=== PATIENT | female | born 1975 | race Caucasian/White ===

== ENCOUNTER 2020-03-23 15:02 | Emergency (ER) | payer SELFPAY ==
[~2020-03-23] VITALS: Ht 152.4 cm; Wt 64.0 kg
[~2020-03-23 15:02] MED LIST: AMOX500C PO; HYDR-2155 PO
[2020-03-23 15:10] VITALS: BP 119/74
--- NOTE | 2020-03-23 15:34 | PHYS DOC ---
Past History Past Medical History: Bronchitis, CAD, COPD Past Surgical History: Tubal ligation, Other Smoking: Cigarettes Alcohol Use: Occasionally Drug Use: None General Adult EDM: Chief Complaint: Cough, headache, SOA, Fever, Sore throat HPI: HPI: 44-year-old female presents with multiple complaints including shortness of air, headache, subjective fever/chills, and cough which started yesterday. Patient denies known sick contacts. Denies known exposure to COVID-19. 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 Patient also reports she lives across from the [facility] where multiple prisoners and guards have tested positive. Review of Systems: Review of Systems: Constitutional: Reports subjective fever and chills Eyes: Denies redness or eye pain HENT: Denies nasal congestion or sore throat Respiratory: Reports cough and shortness of breath Cardiovascular: Denies chest pain or palpitations GI: Denies abdominal pain, nausea, or vomiting : Denies dysuria or hematuria Musculoskeletal: Denies back pain or joint pain Integument: Denies rash or skin lesions Neurologic: Reports headache; denies focal weakness or sensory changes Complete systems were reviewed and found to be within normal limits, except as documented in this note. Allergies: Allergies: Allergies Coded Allergies Type Severity Reaction Last Updated Verified Penicillins Allergy Unknown HIGH FEVER 02/25/14 Yes Physical Exam: PE: Constitutional: Well developed, well nourished, no acute distress, non-toxic appearance HENT: Normocephalic, atraumatic, TMs clear bilaterally, clear nasal congestion noted Eyes: PERRL, EOMI, conjunctiva normal, no discharge Neck: Normal range of motion, no tenderness, supple, no meningeal signs Lungs & Thorax: No respiratory distress, equal chest rise and fall Abdomen: Soft, no tenderness Skin: Warm, dry, no erythema, no rash Extremities: No tenderness, ROM intact, no edema Neurologic: Alert and oriented X 3, normal motor function, normal sensory function, no focal deficits noted Psychologic: Affect normal, judgment normal EKG: EKG: [] Radiology/Procedures: Radiology/Procedures: PROCEDURE: PORTABLE CHEST 1V Study: CR PORTABLE CHEST 1V Indication: Cough. Shortness of air. Comparison: None. Findings: The cardiomediastinal silhouette is within normal limits for size. Unremarkable anne-marie. No lobar consolidation, pleural effusion or pneumothorax. Unremarkable osseous structures. Impression: No confluent infiltrate to suggest an organizing pneumonia. Electronically signed by: IRMA DENNIS MD (03/23/2020 3:54 PM) [id number] Course & Med Decision Making: Course & Med Decision Making Pertinent Imaging studies reviewed. (See chart for details) \\Patient presents with multiple complaints including subjective fevers/chills, cough, shortness of air, and headache. Patient concern for possible COVID-19 infection. Patient is currently afebrile and O2 sats stable on room air. No respiratory distress appreciated. Patient does have history of COPD and continues to smoke cigarettes. Chest x-ray without acute process. Patient stable for discharge with outpatient follow-up with PCP. An incentive spirometer was provided with education as well as a spacer for patient to use with her MDI. Discussed findings and plan with patient, who acknowledges understanding and agreement. COVID-19 CRITERIA: The patient was evaluated during the global COVID-19 pandemic, and that diagnosis was suspected/considered upon their initial prese ntation. Their evaluation, treatment and testing was consistent with current guidelines for patients who present with complaints or symptoms that may be related to COVID-19. Dragon Disclaimer: Dragon Disclaimer: This electronic medical record was generated, in whole or in part, using a voice recognition dictation system. Departure Departure: Impression: Primary Impression: Viral syndrome Additional Impressions: Suspected 2019 novel coronavirus infection COPD (chronic obstructive pulmonary disease) Qualified Codes: J44.9 - Chronic obstructive pulmonary disease, unspecified Tobacco abuse Disposition: HOME/RESIDENCE PRIOR TO ADM Condition: STABLE Referrals: MARIAN SULLIVAN DO (PCP) Patient Instructions: Chronic Obstructive Pulmonary Disease, [id number], Incentive Spirometer, Smoking, You Can Quit, [id number], Viral Syndrome Additional Instructions: It is suspected you might have COVID-19. Unfortunately the hospital is only testing patients if they are being admitted to the hospital. There are several outpatient locations that are testing the general public including the local health department. Testing does not change treatment. Please continued Tylenol as needed for pain or fever. Increase fluid hydration. Please self isolate for at least 14 days and follow with your doctor. Scripts Azithromycin (AZITHROMYCIN TABLET) 250 Mg Tablet 1 PKG PO UD for bronchitis, #6 TAB Take 2 tablets today and then one tablet every day thereafter for the next 4 days Prov: JOSE FERREIRA DO 03/23/20 COVID-19 Assessment COVID-19 Patient Risks: Age 65 or older: No Sign of co-morbidity: Yes Exp to person + for COVID: No Exp to PUI: Yes Travel from affected area: No Lower respiratory symptoms: Yes Fever: Yes PPE Use: Full PPE with N95 mask or PAPR: Yes JOSE FERREIRA DO March 23, 2020 15:34
--- NOTE | 2020-03-23 15:57 | RAD ---
Study: CR PORTABLE CHEST 1V Indication: Cough. Shortness of air. Comparison: None. Findings: The cardiomediastinal silhouette is within normal limits for size. Unremarkable anne-marie. No lobar consolidation, pleural effusion or pneumothorax. Unremarkable osseous structures. Impression: No confluent infiltrate to suggest an organizing pneumonia. Electronically signed by: IRMA DENNIS MD (03/23/2020 3:54 PM) [id number]
[2020-03-23] MEDS ORDERED: AZIT250T6 PO (16:04)
== END 2020-03-23 16:13 | disposition home or self-care (01) ==
LOC: ER 15:02
DX: B34.9 Viral infection, unspecified (principal); Z03.818 Encounter for observation for suspected exposure to other biological agents ruled out; J44.9 Chronic obstructive pulmonary disease, unspecified; I25.10 Atherosclerotic heart disease of native coronary artery without angina pectoris; F17.210 Nicotine dependence, cigarettes, uncomplicated; Z88.0 Allergy status to penicillin
CPT/HCPCS: 71045; 99283

== ENCOUNTER 2021-01-06 15:21 | Emergency (ER) | payer SELFPAY ==
[~2021-01-06] VITALS: Ht 152.4 cm; Wt 66.3 kg
[~2021-01-06 15:21] MED LIST changes: +AZIT250T6 PO
[2021-01-06 16:37] LABS: U PREG PATIENT NEGATIVE (NEG)
--- NOTE | 2021-01-06 17:01 | RAD ---
Exam: CT orbits without contrast INDICATION: Right thigh blurry vision today TECHNIQUE: Sequential axial images through the orbits obtained without IV contrast. Sagittal and wicho nal reformatted images were reconstructed from the axial data and reviewed. Comparisons: None FINDINGS: Visualized intracranial structures are unremarkable. There is mucosal thickening of the right maxillary sinus. There is periapical lucency surrounding the right maxillary molars with cortical breakthrough into the right maxillary sinus. No acute fractures are identified. Globes and intraorbital contents are normal. Extraocular muscles are symmetric. Optic nerve sheath co mplex is unremarkable. IMPRESSION: 1. No acute abnormality identified at the globes or orbits. 2. Right-sided maxillary sinus disease with periapical lucency involving right maxillary molars with associated cortical breakthrough into the right maxillary sinus. Exposure: One or more of the following in the visualized dose reduction techniques were utilized for this examination: 1. Automated exposure control 2. Adjustment of the MA and/or KV according to patient size 3. Use of iterative of reconstructive technique Electronically signed by: Jelly Aguilar MD (01/06/2021 4:58 PM) [facility]
--- NOTE | 2021-01-06 17:14 | PHYS DOC ---
Past History Past Medical History: No Pertinent History, Bronchitis, CAD, COPD Past Surgical History: Tubal ligation Smoking: Cigarettes Alcohol Use: Occasionally Drug Use: None General Adult EDM: Chief Complaint: OTHER COMPLAINTS HPI: HPI: 45-year-old female who denies any significant past medical history presents the ED with complaints of right-sided vision loss of her periphery that lasted for approximately 20 minutes and has since resolved, occurred while watching TV. States she was lifting up her right arm and could not see her arm out of her right eye. Covered right eye and could see her right arm but when she covered her left eye could only see nasal portion of her view, no temporal vision. Denies any known history of Covid, dvt or pes. Takes no medications. Is postmenopausal. Sees a world history teacher every year and has a " [place] heart test," performed due to mothers' h/o cardiomyopathy and cad. This test consists of labs, no imaging studies, no h/o stress test. Reports "All I drink his coffee, from when I wake up to when I go to sleep." No h/o cocaine, methamphetamine abuse, stimulants or weight loss medications. Does report weight fluctuation with Covid. Had initially lost 25 pounds but has since regained it. Denies any history of head or neck trauma, MVC's results. Unknown baseline vision. Does not wear contact lenses or glasses. Unknown baseline vision. No known history of hypertension, hyperlipidemia. No history of TIA or CVA. Review of Systems: Review of Systems: Constitutional: Denies fever or chills Eyes: Denies eye drainage or redness HENT: Denies nasal congestion or sore throat Respiratory: Denies cough or shortness of breath Cardiovascular: Denies chest pain or edema GI: Denies abdominal pain, nausea, vomiting, bloody stools or diarrhea : Denies dysuria Musculoskeletal: Denies back pain or joint pain Integument: Denies rash Neurologic: Denies headache, focal weakness or sensory changes Endocrine: Denies polyuria or polydipsia Lymphatic: Denies swollen glands Psychiatric: Denies depression or anxiety Allergies: Allergies: Allergies Coded Allergies Type Severity Reaction Last Updated Verified Penicillins Allergy Unknown HIGH FEVER 02/25/14 Yes Physical Exam: PE: Constitutional: Well developed, well nourished, no acute distress, non-toxic appearance. HENT: Normocephalic, atraumatic, Eyes: PERRLA, EOMI, conjunctiva normal, no conjunctival injection or ciliary fl ush, no photophobia, no discharge, [facility] Neck: Normal range of motion, supple, Cardiovascular: S1/2 present, regular rhythm Lungs & Thorax: Speaking in full sentences, bilateral equal chest rise, no tachypnea or increased work of breathing Abdomen: soft, no tenderness, Skin: Warm, dry, no erythema, no rash. [] Back: No tenderness, no CVA tenderness. [] Extremities: No tenderness, no cyanosis, no lower extremity edema Neurologic: NIHSS 0, CN2-12 intact, no ataxia, Alert and oriented X 3, normal motor function, normal sensory function, no focal deficits noted. [] Psychologic: Affect normal, judgement normal, mood normal. [] Current Patient Data: Labs: Laboratory Tests Test 01/06/21 16:00 01/06/21 16:13 Urine Test Negative (NEG) POC Urine HCG, Qualitative Borderline hcg level Vital Signs: Vital Signs Date Time Temp Pulse Resp B/P (MAP) Pulse Ox O2 Delivery O2 Flow Rate FiO2 01/06/21 15:35 97.0 89 16 120/66 (84) 99 Room Air EKG: EKG: [] Radiology/Procedures: Radiology/Procedures: IMAGING REPORT Signed PATIENT: KELSEY DOWNS ACCOUNT: [id number] : 1975 LOCATION: ER AGE: 45 SEX: F EXAM STATUS: REG ER ORD. PHYSICIAN: FRANCISCO J HENDERSON DO REASON: Right eye blurry vision today PROCEDURE: CT ORBITS WO CONTRAST Exam: CT orbits without contrast INDICATION: Right thigh blurry vision today TECHNIQUE: Sequential axial images through the orbits obtained without IV contrast. Sagittal and coronal reformatted images were reconstructed from the axial data and reviewed. Comparisons: None FINDINGS: Visualized intracranial structures are unremarkable. There is mucosal thickening of the right maxillary sinus. There is periapical lucency surrounding the right maxillary molars with cortical breakthrough into the right maxillary sinus. No acute fractures are identified. Globes and intraorbital contents are normal. Extraocular muscles are symmetric. Optic nerve sheath complex is unremarkable. IMPRESSION: 1. No acute abnormality identified at the globes or orbits. 2. Right-sided maxillary sinus disease with periapical lucency involving right maxillary molars with associated cortical breakthrough into the right maxillary sinus. Exposure: One or more of the following in the visualized dose reduction techniques were utilized for this examination: 1. Automated exposure control 2. Adjustment of the MA and/or KV according to patient size 3. Use of iterative of reconstructive technique Electronically signed by: Jelly Garcia MD (01/06/2021 4:58 PM) [facility] DICTATED AND SIGNED BY: JELLY GARCIA MD DATE: 01/06/21 9999 CC: PCP,NO; [facility] ~MTH0 0 attemtped POCUS-ocular exam -was unsuccessful given no linear probe available and poor visualization with phased-array cardiac probe Heart Score: C/O Chest Pain: No Risk Factors: Risk Factors: DM, Current or recent (<one month) smoker, HTN, HLP, family history of CAD, obesity. Risk Scores: Score 0 - 3: 2.5% MACE over next 6 weeks - Discharge Home Score 4 - 6: 20.3% MACE over next 6 weeks - Admit for Clinical Observation Score 7 - 10: 72.7% MACE over next 6 weeks - Early Invasive Strategies Course & Med Decision Making: Course & Med Decision Making Pertinent Labs and Imaging studies reviewed. (See chart for details) Concern for TIA of right eye. CT orbits w/sinus disease -pt denies any sinus pressure (has no nasal congestion/nasal voice). Negative ED urine test on the last test did report borderline-was given to pt to have re-te sted w/pcp. Patient reports history of tubal ligation. BP in normal range. Asymptomatic throughout ED presentation. Patient educated on concern for TIA, that this can be a precursor for a stroke and patient requires urgent PCP follow-up for stroke prevention and urgent (24-48 hours) ophthalmology evaluation. Will discharge home with strict ED return precautions were given for speech changes, arm or leg weakness or sensory deficits, difficulties walking, dizziness, vision loss/changes or eye discharge. Encouraged urgent outpatient follow-up with PMD and ophthalmology in 24 to 48 hours to evaluate for TIA of eye. Life-threatening processes were considered but are low suspicion at this time, given history, physical exam and ED workup. Pt was educated on all prescription medications and adverse effects. All patient's questions were answered and pt was stable at time of discharge. Life/limb-threatening differential includes but is not limited to, acute angle- closure glaucoma, uveitis, corneal abrasion, CRVO/CRAO, PRES, retinal detachment, vitreous hemorrhage, temporal arteritis, optic neuritis, high- altitude retinopathy foreign body, globe rupture, episcleritis, corneal ulcer, traumatic iritis, hyphema or empyema, orbital cellulitis, orbital hematoma, lens dislocation or orbital wall fracture. I spoken with the patient and her caregivers. I explained the patient's condition, diagnoses and treatment plan based on the information available to me at this time. I have answered the patient and her caregiver's questions and addressed any concerns. The patient and her caregivers have a good understanding of patient's diagnosis, condition and treatment plan as can be expected at this point. Vital signs have been stable. Patient's condition is stable and appropriate for discharge from the emergency department. Patient will pursue further outpatient evaluation with primary care physician or other designated or consulting physician as outlined in the discharge instructions. The patient and/or caregivers are agreeable to this plan of care and follow-up instructions have been explained in detail. The patient and/or caregivers have received these instructions in written form and have expressed an understanding of the discharge instructions. The patient and/or caregivers are aware that any significant change of condition or worsening of symptoms should prompt immediate return to this or the closest emergency department or call to 1. Frank Disclaimer: Frank Disclaimer: This electronic medical record was generated, in whole or in part, using a voice recognition dictation system. Departure Departure: Impression: Primary Impression: Blurry vision, right eye Disposition: 01 DC HOME SELF CARE/HOMELESS Condition: STABLE Referrals: PCP,NO (PCP) FOLLOW UP WITH FAMILY MEDICINE: [facility], [facility] [address] [facility] [address] [place] [address], [facility] Instructions: Eye - Blurred Vision, Transient Ischemic Attack Additional Instructions: FOLLOW UP WITH OPTHALMOLOGY: in 24-48 hours [facility], [facility] Address: [address] [place] [address] EMERGENCY DEPARTMENT GENERAL DISCHARGE INSTRUCTIONS Thank you for coming to [facility] (ED) today and trusting us with you care. We trust that you had a positivie experience in our Emergency Department. If you wish to speak to the department management, you may call the director at [phone]. YOUR FOLLOW UP INSTRUCTIONS ARE FOLLOWS: 1. Do you have a private Doctor? If you do not have a private doctor, please ask for a resource list of physicians or clinics that may be able to assist you with follow up care. 2. The Emergency Physician has interpreted your x-rays. The X-Ray specialist w mitch also review them. If there is a change in the findings, you will be notified in 48 hours when at all possible. 3. A lab test or culture has been done, your results will be reviewed and you will be notified if you need a change in treatment. ADDITIONAL INSTRUCTIONS AND INFORMATION: 1. Your care today has been supervised by a physician who is specially trained in emergency care. Many problems require more than one evaluation for a complete diagnosis and treatment. We recommend that you schedule your follow up appointment as recommended to ensure complete treatment of you illness or injury. If you are unable to obtain follow up care and continue to have a problem, or if your condition worsens, we recommend that you return to the ED. 2. We are not able to safely determine your condition over the phone nor are we able to give sound medical advice over the phone. For these safety reasons, if you call for medical advice we will ask you to come to the ED for further evaluation. 3. If you have any questions regarding these discharge instructions please call the ED at [phone]. SAFETY INFORMATION: In the interest of safety, wellness, and injury prevention; we encourage you to wear your sealbelt, if you smoke; quite smoking, and we encourage family to use a protective helmet for bicycling and other sporting events that present an increased risk for head injury. IF YOUR SYMPTOMS WORSEN OR NEW SYMPTOMS DEVELOP, OR YOU HAVE CONCERNS ABOUT YOUR CONDITION; OR IF YOUR CONDITION WORSENS WHILE YOU ARE WAITING FOR YOUR FOLLOW UP APPOINTMENT; EITHER CONTACT YOUR PRIMARY CARE DOCTOR, THE PHYSICIAN WHOSE NAME AND NUMBER YOU WERE GIVEN, OR RETURN TO THE ED IMMEDIATELY. FRANCISCO J HENDERSON DO Jan 06, 2021 17:14
[2021-01-06 17:33] VITALS: BP 132/70
== END 2021-01-06 17:32 | disposition home or self-care (01) ==
LOC: ER 15:21
DX: H53.8 Other visual disturbances (principal); J44.9 Chronic obstructive pulmonary disease, unspecified; I25.10 Atherosclerotic heart disease of native coronary artery without angina pectoris; F17.210 Nicotine dependence, cigarettes, uncomplicated; Z88.0 Allergy status to penicillin
CPT/HCPCS: 70480; 81025; 99284-25

== ENCOUNTER → 2021-01-08 | Outpatient (CLI) | payer SELFPAY ==
[2021-01-06 17:33] VITALS: BP 132/70
[~2021-01-08] MED LIST changes: +IOHEXOL 240 MG/ML 50ML VIAL. ONE; +IOHEXOL 300 MG/ML 75 ML VIAL. IV ONE
--- NOTE | 2021-01-08 16:07 | RAD ---
EXAM: Abdomen and pelvis CT with intravenous contrast. HISTORY: Pain. TECHNIQUE: Computed tomographic images of the abdomen and pelvis were obtained following the administ ration of intravenous contrast. Multiplanar reformatting was performed. *One or more of the following individualized dose reduction techniques were utilized for this examina tion: 1. Automated exposure control. 2. Adjustment of the mA and/or kV according to patient size. 3. Use of iterative reconstruction technique. COMPARISON: None. FINDINGS: Evaluation of the lower thorax is unremarkable. There is a tiny cyst within the superior li christopher. The gallbladder, pancreas, spleen, stomach, adrenal glands and right kidney are unremarkable. Th ere is a suspected punctate nonobstructing stone within lower pole the left kidney. There is no appen dicitis. There is no bowel obstruction. The bladder is unremarkable. The uterus is unremarkable. Ther e are multiple small ovarian follicles. There is trace pelvic free fluid, within physiologic limits. The fallopian tubes are prominent, not clearly within limits to suggest hydrosalpinx. There is no yvonne picious osseous lesion. There is no lymphadenopathy. There is an incidental retroverted left renal ve in. IMPRESSION: No acute abdominal or pelvic finding. Electronically signed by: Dede Severino MD (01/08/2021 4:05 PM) [id number]
== END ==
LOC: CT 13:29
PROVIDERS: ATTEND Family Medicine
DX: K76.89 Other specified diseases of liver (principal); K62.89 Other specified diseases of anus and rectum; E34.9 Endocrine disorder, unspecified; K92.1 Melena; H53.9 Unspecified visual disturbance
CPT/HCPCS: 74177; Q9967

== ENCOUNTER → 2021-02-13 | Outpatient (CLI) | payer SELFPAY ==
[~2021-02-13] MED LIST changes: -IOHEXOL 240 MG/ML 50ML VIAL. ONE; -IOHEXOL 300 MG/ML 75 ML VIAL. IV ONE
[2021-02-13 15:45] LABS: BASO % 1 % (0-3); EOS # 0.1 x10^3/uL (0.0-0.7); EOS % 2 % (0-3); HEMOGLOBIN 12.7 g/dL (12.0-15.5); LYMPH # 1.8 x10^3/uL (1.0-4.8); LYMPH % 32 % (24-48); MEAN CORPUSCULAR HEMOGLOBIN 30 pg (25-35); MEAN CORPUSCULAR HGB CONC 33 g/dL (31-37); MEAN CORPUSCULAR VOLUME 90 fL (79-100); MONO # 0.4 x10^3/uL (0.0-1.1); MONO % 8 % (0-9); NEUT # 3.2 x10^3uL (1.8-7.7); NEUT % 57 % (31-73); PLATELET COUNT 196 x10^3/uL (140-400); RED BLOOD COUNT 4.22 x10^6/uL (3.50-5.40); RED CELL DISTRIBUTION WIDTH 14.1 % (11.5-14.5); WHITE BLOOD COUNT 5.6 x10^3/uL (4.0-11.0)
== END ==
LOC: LAB 14:57
PROVIDERS: ATTEND Nurse Practitioner Women's Health
DX: N92.0 Excessive and frequent menstruation with regular cycle (principal)
CPT/HCPCS: 36415; 85025

== ENCOUNTER 2021-12-24 09:26 | Emergency (ER) | payer SELFPAY ==
[~2021-12-24] VITALS: Ht 152.4 cm; Wt 63.0 kg
--- NOTE | 2021-12-24 10:18 | PHYS DOC ---
Past History Past Medical History: No Pertinent History, Bronchitis, CAD, COPD Past Surgical History: Tubal ligation Additional Past Surgical Histo: OVARAIN CYST REMOVAL Smoking: Cigarettes Alcohol Use: Occasionally Drug Use: None General Adult EDM: Chief Complaint: DIARRHEA HPI: HPI: Patient is a 46-year-old female coming in for lower abdominal pain and bloating. She is also complained of about 9 episodes of diarrhea daily for the past 3 days. Patient was seen in urgent care 4 to 5 days ago for vaginal bleeding and discharge. Had swabs done to evaluate for STI, but states they were negative. Patient has a follow-up appointment with [facility] in 2 days. Patient states she has had some chills and subjective fever, has some nausea but no vomiting. Denies any recent travel, antibiotics, raw or undercooked foods. Has had family members at home with similar symptoms. Review of Systems: Review of Systems: All other systems within normal limits except for as noted in the HPI Allergies: Allergies: Allergies Coded Allergies Type Severity Reaction Last Updated Verified Penicillins Allergy Unknown HIGH FEVER 12/24/21 Yes Physical Exam: PE: Constitutional: Well developed, well nourished, no acute distress, non-toxic appearance. [] HENT: Normocephalic, atraumatic, bilateral external ears normal, nose normal. [] Eyes: PERRLA, conjunctiva normal, no discharge. [] Neck: No rigidity, supple, no stridor. [] Cardiovascular: Regular rate and rhythm, brisk cap refill [] Lungs & Thorax: Non labored symmetric respirations, no tachypnea or respiratory distress [] Abdomen: Soft, mildly distended, lower bilateral lower abdominal pain with palpation Skin: Warm, dry, no erythema, no rash. [] Back: Unremarkable Extremities: No deformities, range of motion grossly intact, no lower extremity edema [] Neurologic: Alert and oriented X 3, no focal deficits noted. [] Psychologic: Affect normal, judgement normal, mood normal. [] Current Patient Data: Vital Signs: Vital Signs Date Time Temp Pulse Resp B/P (MAP) Pulse Ox O2 Delivery O2 Flow Rate FiO2 12/24/21 09:40 97.8 95 18 122/66 (84) 100 Room Air EKG: EKG: [] Radiology/Procedures: Radiology/Procedures: [address] [address] IMAGING REPORT Signed PATIENT: KELSEY DOWNS AACCOUNT: [id number] : 1975 LOCATION: ER AGE: 46 SEX: F EXAM STATUS: REG ER ORD. PHYSICIAN: FILIBERTO PEÑALOZA MD REASON: abd pain and distention ORDERED CONTRAST PROCEDURE: CT ABD PELV W/ IV CONTRST ONLY EXAMINATION: CT ABDOMEN+PELVIS W CLINICAL HISTORY: Abdominal pain and distention TECHNIQUE: CT of the abdomen and pelvis was performed using standard technique, scanning from just above the dome of the diaphragm to the symphysis pubis following administration of intravenous contrast. CT Dose Reduction Employed: One or more of the following individualized dose reduction techniques were utilized for this examination: 1. Automated exposure control 2. Adjustment of the mA and/or kV according to patient size 3. Use of iterative reconstruction technique. COMPARISON: 01/08/2021 FINDINGS: Visualized heart and lungs unremarkable. Liver, gallbladder, pancreas, spleen, adrenal glands, and kidneys unremarkable. Minimally filled urinary bladder. Multifollicular right ovary. Left ovary and uterus unremarkable. Mild fluid in the rectouterine fossa, possibly physiologic. Predominantly fluid-filled small bowel with mild wall thickening, nonspecific but suggestive of mild enteritis. No dilated bowel. Appendix unremarkable. Non distended stomach suboptimally evaluated. Minimal aortic atherosclerotic calcification without aneurysm. No evidence of acute osseous abnormality. Slight dextroconvex curvature in the thoracolumbar spine, possibly positional. IMPRESSION: Findings suggestive of mild enteritis as described, correlate clinically. Electronically signed by: Tej Butler DO (12/24/2021 11:06 AM) [facility] DICTATED AND SIGNED BY: TEJ BUTLER DO DATE: 12/24/21 1058 CC: FILIBERTO PEÑALOZA MD; PCP,NO ~MTH0 0 [] Heart Score: C/O Chest Pain: No Risk Factors: Risk Factors: DM, Current or recent (<one month) smoker, HTN, HLP, family history of CAD, obesity. Risk Scores: Score 0 - 3: 2.5% MACE over next 6 weeks - Discharge Home Score 4 - 6: 20.3% MACE over next 6 weeks - Admit for Clinical Observation Score 7 - 10: 72.7% MACE over next 6 weeks - Early Invasive Strategies Course & Med Decision Making: Course & Med Decision Making Pertinent Labs and Imaging studies reviewed. (See chart for details) [] Frank Disclaimer: Frank Disclaimer: This electronic medical record was generated, in whole or in part, using a voice recognition dictation system. Departure Departure: Impression: Primary Impression: Enteritis Disposition: HOME / SELF CARE / HOMELESS Condition: STABLE Referrals: PCP,NO (PCP) Patient Instructions: Diet for Diarrhea, Adult Scripts Dicyclomine Hcl (DICYCLOMINE HCL) 20 Mg Tablet 1 TAB PO TID PRN for ABDOMINAL CRAMPS, #30 TAB 1 Refill Prov: FILIBERTO PEÑALOZA MD 12/24/21 Ondansetron (ONDANSETRON ODT) 4 Mg Tab.rapdis 1 TAB PO PRN Q6-8HRS PRN for NAUSEA, #16 TAB Prov: FILIBERTO PEÑALOZA MD 12/24/21 FILIBERTO PEÑALOZA MD Dec 24, 2021 10:18
[2021-12-24] MEDS ORDERED: IOHEXOL 300 MG/ML 75 ML VIAL. IV ONE (10:30)
[2021-12-24 10:39] LABS: BASO % 1 % (0-3); EOS % 1 % (0-3); HEMATOCRIT 40.2 % (36.0-47.0); HEMOGLOBIN 13.5 g/dL (12.0-15.5); LYMPH # 0.9 x10^3/uL (1.0-4.8); LYMPH % 25 % (24-48); MEAN CORPUSCULAR HEMOGLOBIN 30 pg (25-35); MEAN CORPUSCULAR HGB CONC 34 g/dL (31-37); MEAN CORPUSCULAR VOLUME 90 fL (79-100); MONO # 0.5 x10^3/uL (0.0-1.1); MONO % 13 % (0-9); NEUT # 2.3 x10^3uL (1.8-7.7); NEUT % 61 % (31-73); PLATELET COUNT 175 x10^3/uL (140-400); RED BLOOD COUNT 4.48 x10^6/uL (3.50-5.40); RED CELL DISTRIBUTION WIDTH 14.3 % (11.5-14.5); WHITE BLOOD COUNT 3.7 x10^3/uL (4.0-11.0)
[2021-12-24 10:41] LABS: CREATININE 0.7 mg/dL (0.6-1.0); GFR 90.1; POTASSIUM 4.1 mmol/L (3.5-5.1)
[2021-12-24 10:47] LABS: ALBUMIN 3.5 g/dL (3.4-5.0); ALBUMIN/GLOBULIN RATIO 1.1 (1.0-1.7); PHOSPHORUS 2.9 mg/dL (2.6-4.7); TOTAL BILIRUBIN 0.3 mg/dL (0.2-1.0); TOTAL PROTEIN 6.7 g/dL (6.4-8.2)
[2021-12-24 11:00] LABS: CLARITY,URINE HAZY; COLOR,URINE YELLOW; GLUCOSE,URINE NEG (NEG); NITRITE,URINE NEG (NEG); UROBILINOGEN,URINE 0.2 mg/dL (0.2 mg/dL)
[2021-12-24 11:01] LABS: BACTERIA,URINE 0 /HPF (0-FEW); RBC,URINE OCC /HPF (0-2); SQUAMOUS EPITHELIAL CELL,UR MOD /LPF; WBC,URINE RARE /HPF (0-4)
[2021-12-24 11:06] LABS: U PREG PATIENT NEGATIVE (NEG)
--- NOTE | 2021-12-24 11:09 | RAD ---
EXAMINATION: CT ABDOMEN+PELVIS W CLINICAL HISTORY: Abdominal pain and distention TECHNIQUE: CT of the abdomen and pelvis was performed using standard technique, scanning from just ab ove the dome of the diaphragm to the symphysis pubis following administration of intravenous contrast . CT Dose Reduction Employed: One or more of the following individualized dose reduction techniques wer e utilized for this examination: 1. Automated exposure control 2. Adjustment of the mA and/or kV ac cording to patient size 3. Use of iterative reconstruction technique. COMPARISON: 01/08/2021 FINDINGS: Visualized heart and lungs unremarkable. Liver, gallbladder, pancreas, spleen, adrenal glands, and kidneys unremarkable. Minimally filled urinary bladder. Multifollicular right ovary. Left ovary and uterus unremarkable. Mi ld fluid in the rectouterine fossa, possibly physiologic. Predominantly fluid-filled small bowel with mild wall thickening, nonspecific but suggestive of mild enteritis. No dilated bowel. Appendix unremarkable. Nondistended stomach suboptimally evaluated. Minimal aortic atherosclerotic calcification without aneurysm. No evidence of acute osseous abnormality. Slight dextroconvex curvature in the thoracolumbar spine, p ossibly positional. IMPRESSION: Findings suggestive of mild enteritis as described, correlate clinically. Electronically signed by: Tej Garnett DO (12/24/2021 11:06 AM) [facility]
[2021-12-24 11:20] VITALS: BP 120/70
[2021-12-24] MEDS ORDERED: DICY20TA PO (11:22)
[2021-12-24] MEDS ORDERED: ONDA4TAB12 PO (11:22)
== END 2021-12-24 11:33 | disposition home or self-care (01) ==
LOC: ER 09:26
DX: K52.9 Noninfective gastroenteritis and colitis, unspecified (principal); I25.10 Atherosclerotic heart disease of native coronary artery without angina pectoris; J44.9 Chronic obstructive pulmonary disease, unspecified; F17.210 Nicotine dependence, cigarettes, uncomplicated; Z98.51 Tubal ligation status; Z88.0 Allergy status to penicillin
CPT/HCPCS: 36415; 74177; 80053; 81001; 81025; 83690; 83735; 84100; 85025; 99285; Q9967

== ENCOUNTER 2022-02-24 21:53 | Emergency (ER) | payer SELFPAY ==
[~2022-02-24] VITALS: Ht 152.4 cm; Wt 67.8 kg
[~2022-02-24 21:53] MED LIST changes: +DICY20TA PO; +ONDA4TAB12 PO
[2022-02-24 22:13] VITALS: BP 113/72
--- NOTE | 2022-02-24 22:24 | PHYS DOC ---
Past History Past Medical History: No Pertinent History, Anxiety, Arthritis, Bronchitis, CAD, Constipation, COPD, Fibromyalgia, IBS Past Surgical History: Tubal ligation Additional Past Surgical Histo: OVARAIN CYST REMOVAL Smoking: Cigarettes Alcohol Use: None Drug Use: None General Adult EDM: Chief Complaint: HEADACHE HPI: HPI: " I was at [facility] yesterday.. in he ED ,, they worked me up completely for chest pain.. even got a CT.. they did not CT my head. .. they said my electrolytes where off but they did nothing.. I came here to get check out again. " I am not had any fever or chills. . some aching.. and let you know I an adamant antivaccination... so I do not get flu shots or COVID. .. I do have a medical friend at .. and they said if my electrolytes are off.. to get checked again.. I did not want to go back to the [facility].. " Patient is a 46 year old female who presents with above hx and complaints of intractable cough. Patient does have a history of past episodes of bronchitis, coronary artery disease, COPD, patient has previous surgeries of tubal ligation, ovarian cyst removal, dysfunctional uterine bleeding, IBS, diarrhea and consti pation, tobacco , vaping, enteritis, migraines, chronic abdomen pain,. Patient still smokes cigarettes and vapes. Patient denies any bad food intake. Patient denies any recent travel. Patient denies any specific ill contacts. Patient denies any family members who have similar symptoms. Patient denies any trauma. Reported her evaluation at [facility] she had low electrolytes but nothing was done to treat it. Patient does not do vaccinations. Review of Systems: Review of Systems: Constitutional: Denies fever or chills Eyes: Denies change in visual acuity HENT: Denies nasal congestion or sore throat Respiratory: Hx. of cough Cardiovascular: Denies chest pain or edema GI: Generalize abdominal discomfort, nausea,.Denies vomiting, bloody stools or diarrhea : Denies dysuria Musculoskeletal: Denies back pain or joint pain Integument: Denies rash Neurologic: Mild migraine headache, . No focal weakness or sensory changes Endocrine: Denies polyuria or polydipsia Lymphatic: Denies swollen glands Psychiatric: Denies depression or anxiety Family History: Family History: No family members are ill respiratory symptoms Current Medications: Current Meds: See nursing for home meds Allergies: Allergies: Allergies Coded Allergies Type Severity Reaction Last Updated Verified Penicillins Allergy Unknown HIGH FEVER 02/24/22 Yes Physical Exam: PE: Constitutional: no acute distress, non-toxic appearance. [] HENT: Normocephalic, atraumatic, bilateral external ears normal, oropharynx moist, no oral exudates, nose swollen turbinates clear rhinorrhea Eyes: PERRLA, EOMI, conjunctiva normal, no discharge. [] Neck: Normal range of motion, no tenderness, supple, no stridor. [] Cardiovascular:Heart rate regular rhythm, no murmur [] Lungs & Thorax: Bilateral breath sounds equal apex with few scattered wheezes auscultation [] Abdomen: Bowel sounds normal, soft, no tenderness, no masses, no pulsatile masses. Surgical scar Skin: Warm, dry, no erythema, no rash. [] Back: No tenderness, no CVA tenderness. [] Extremities: No tenderness, no cyanosis, no clubbing, ROM intact, no edema. [] Neurologic: Alert and oriented X 3, normal motor function, normal sensory function, no focal deficits noted. Patient ambulatory without problems at time of discharge Psychologic: Affect angry, judgement normal, mood normal. [] Current Patient Data: Vital Signs: Vital Signs Date Time Temp Pulse Resp B/P (MAP) Pulse Ox O2 Delivery O2 Flow Rate FiO2 02/24/22 22:13 98.1 93 20 113/72 (86) 100 Room Air EKG: EKG: Level 4 EKG completed [] Radiology/Procedures: Radiology/Procedures: Left before x-ray completed [] Heart Score: C/O Chest Pain: N/A Risk Factors: Risk Factors: DM, Current or recent (<one month) smoker, HTN, HLP, family history of CAD, obesity. Risk Scores: Score 0 - 3: 2.5% MACE over next 6 weeks - Discharge Home Score 4 - 6: 20.3% MACE over next 6 weeks - Admit for Clinical Observation Score 7 - 10: 72.7% MACE over next 6 weeks - Early Invasive Strategies Course & Med Decision Making: Course & Med Decision Making Pertinent Labs and Imaging studies reviewed. (See chart for details) Pt. left ED before completing exam. Upset over medical history and questions about antivaccination and exposures. Left before formal discharge. Advised pt. return if any concens Impression .1. Migraine headache 2. Chronic bronchitis 3. Irritable bowel syndrome [] Dragon Disclaimer: Yusufon Disclaimer: This electronic medical record was generated, in whole or in part, using a voice recognition dictation system. Departure Departure: Referrals: PCP,NO (PCP) Frank Disclaimer This chart was dictated in whole or in part using Voice Recognition software in a busy, high-work load, and often noisy Emergency Department environment. It may contain unintended and wholly unrecognized errors or omissions. SVETLANA CHOI MD Feb 24, 2022 22:24
== END 2022-02-24 23:27 | disposition left against medical advice (07) ==
LOC: ER 21:53
DX: G43.909 Migraine, unspecified, not intractable, without status migrainosus (principal); J42 Unspecified chronic bronchitis; K58.9 Irritable bowel syndrome, unspecified; F17.210 Nicotine dependence, cigarettes, uncomplicated; Z88.0 Allergy status to penicillin
CPT/HCPCS: 99281-25